=== PATIENT | female | born 1965 | race Two or more races ===

== ENCOUNTER 2023-01-03 08:15 | Inpatient (IN) | payer OTHER ==
[~2023-01-03] VITALS: Ht 172.7 cm; Wt 163.3 kg
[2023-01-03] MEDS ORDERED: ATIVAN1 M1 PO (10:32)
[2023-01-03] MEDS ORDERED: WELLBUTRIN SR100 MG PO (10:33)
[2023-01-11] MEDS ORDERED: PERCOCET 5-3251 EACH PO (16:52)
[2023-01-11] MEDS ORDERED: ELIQUIS2.5 MG PO (16:52)
[2023-01-11] MEDS ORDERED: CEFADROXIL500 MG PO (16:52)
== END 2023-01-11 22:14 | disposition short-term general hospital, planned readmission (82) | DRG 470 ==
LOC: SURH 01-09 06:30 → O/R 01-09 06:30 → SURH 01-09 07:00
PROVIDERS: ADMIT Orthopaedic Surgery; ATTEND Orthopaedic Surgery
PROC: 0SRC0J9 Replacement of Right Knee Joint with Synthetic Substitute, Cemented, Open Approach (ICD-10-PCS; principal; 2023-01-09 07:00)
DX: M17.11 Unilateral primary osteoarthritis, right knee (principal); D62 Acute posthemorrhagic anemia; M22.11 Recurrent subluxation of patella, right knee; E66.01 Morbid (severe) obesity due to excess calories; Z96.651 Presence of right artificial knee joint